=== PATIENT | male | born 1995 | race Caucasian/White ===

== ENCOUNTER 2021-05-09 10:07 | Emergency (ER) | payer BC ==
[2021-05-09 10:14] VITALS: BP 118/74; PULSE 71; RESP 18; TEMP 98.1
--- NOTE | 2021-05-09 10:37 | ED ---
ENT HPI - General Chief complaint: Dental/Oral Stated complaint: Mouth infection Source: patient, RN notes reviewed Mode of arrival: ambulatory Limitations: no limitations - History of Present Illness Initial comments: Patient with multiple dental caries presents to the emergency room with left lower dental pain. Patient states that he knows that he has significant dental caries and needs to see a dentist but he has not. He states having hard time sleeping due to the pain. He denies any fevers. No nausea vomiting or diarrhea. He states he has been having a hard time eating due to the pain. He is a nonsmoker. No medications or bases no medical history. MD complaint: tooth pain -: month(s) Location: tooth # (17) Severity: moderate Severity scale (1-10): 7 Quality: aching Consistency: constant Improves with: none Worsens with: eating Context- Dental: history of dental caries, poor dental care Associated Symptoms: toothache - Related Data Previous Rx's Medication Instructions Recorded Amoxicillin/Potassium Clav 1 tab PO Q12HR 10 Days #20 tab 05/09/21 [Augmentin 875-125 Tablet] Allergies Allergy/AdvReac Type Severity Reaction Status Date / Time erythromycin base Allergy Unknown Verified 05/09/21 10:14 Review of Systems ROS Statement: Those systems with pertinent positive or pertinent negative responses have been documented in the HPI. ROS Other: All systems not noted in ROS Statement are negative. Past Medical History Past Medical History: No Reported History History of Any Multi-Drug Resistant Organisms: None Reported Additional Past Surgical History / Comment(s): hand surgery Past Psychological History: No Psychological Hx Reported Smoking Status: Never smoker Past Alcohol Use History: Occasional Past Drug Use History: None Reported General Exam Limitations: no limitations General appearance: alert, in no apparent distress Head exam: Present: atraumatic, normocephalic, normal inspection Eye exam: Present: normal appearance, PERRL, EOMI. Absent: scleral icterus, conjunctival injection, periorbital swelling ENT exam: Present: normal exam, normal oropharynx, mucous membranes moist Expanded Teeth exam: Present: dental caries, dental tenderness # (17) Throat exam: normal inspection. negative: tonsillar erythema, tonsillar exudate Neck exam: Present: normal inspection, full ROM. Absent: tenderness, meningismus, lymphadenopathy, thyromegaly Respiratory exam: Present: normal lung sounds bilaterally. Absent: respiratory distress, wheezes, rales, rhonchi, stridor Cardiovascular Exam: Present: regular rate, normal rhythm, normal heart sounds. Absent: systolic murmur, diastolic murmur, rubs, gallop, clicks GI/Abdominal exam: Present: soft, normal bowel sounds. Absent: distended, tenderness, guarding, rebound, rigid Extremities exam: Present: normal inspection, full ROM, normal capillary refill. Absent: tenderness, pedal edema, joint swelling, calf tenderness Back exam: Present: full ROM. Absent: tenderness, CVA tenderness (R), CVA tenderness (L) Neurological exam: Present: alert, oriented X3, CN II-XII intact Psychiatric exam: Present: normal affect, normal mood Skin exam: Present: warm, dry, intact, normal color. Absent: rash, cyanosis, diaphoretic, vesicles, petechiae, pallor Course Vital Signs 05/09/21 10:11 Temperature 98.1 F Pulse Rate 71 Respiratory 18 Rate Blood Pressure 118/74 O2 Sat by Pulse 99 Oximetry Medical Decision Making - Medical Decision Making Patient with history of severe dental caries. He presents to the emergency room with left lower back tooth pain, tooth #17. There is no evidence of abscess. Patient has had no fevers. He denies any headache. There is no lymphadenopathy. He will be discharged on antibiotics and given Tylenol #3's in addition to [id number] Motrin for pain. directed to follow up with a dentist as soon as possible. Disposition Clinical Impression: Dental caries Disposition: HOME SELF-CARE Instructions (If sedation given, give patient instructions): Toothache (ED) Additional Instructions: Take motrin and tylenol #3 for pain. Take antibiotics as prescribed and f/u with dentist [facility]. Prescriptions: Amoxicillin/Potassium Clav [Augmentin 875-125 Tablet] 1 tab PO Q12HR 10 Days #20 tab Is patient prescribed a controlled substance at d/c from ED?: No Referrals: None,Stated [Primary Care Provider] - 1-2 days Time of Disposition: 10:37
[2021-05-09] MEDS: ACET/COD 300 MG/30 MG STARTER PACK 6 TAB BTL PO STA (10:47)
[2021-05-09] MEDS: KETOROLAC 15 MG/ML 1 ML VIAL IM STA (10:47)
== END 2021-05-09 11:18 | disposition home or self-care (01) ==
LOC: EC 10:07
DX: K02.9 Dental caries, unspecified (principal)
CPT/HCPCS: 96372; 99282